=== PATIENT | female | born 1955 | race Caucasian/White ===

== ENCOUNTER 2017-05-07 22:01 | Emergency (ER) | payer SELFPAY ==
[2017-05-07] MEDS ORDERED: Lidocaine/EPINEPHrine/Tetracaine Soln 5 ML Each TOP ONE (22:56)
[2017-05-07] MEDS ORDERED: Lidocaine 1% with EPINEPHrine 1:100,000 50 ML MDV SUBCUT STA (22:57)
--- NOTE | 2017-05-07 22:59 | EDM.PDOC ---
ED HPI GENERAL MEDICAL PROBLEM - General Chief Complaint: Laceration Stated Complaint: CUT HEAD Time Seen by Provider: 05/07/17 22:42 Source of Information: Reports: Patient, Family, RN Notes Reviewed History Limitations: Reports: No Limitations - History of Present Illness INITIAL COMMENTS - FREE TEXT/NARRATIVE: 61-year-old female presents emergency department today with complaint of laceration above her right eye she was going down the steps miss the last 1 and accidentally bumped her forehead into the door jam producing a laceration she has no other complaints laceration Pain Score (Numeric/FACES): 2 - Related Data Allergies Allergy/AdvReac Type Severity Reaction Status Date / Time No Known Allergies Allergy Verified 05/07/17 22:34 Home Meds: Home Meds NK [No Known Home Meds] 05/07/17 [History] Past Medical History HEENT History: Reports: Impaired Vision 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: - Past Surgical History HEENT Surgical History: Reports: Other (See Below) Other HEENT Surgeries/Procedures: ear surgery Female Surgical History: Reports: Tubal Ligation Social & Family History - Tobacco Use Smoking Status *Q: Never Smoker - Caffeine Use Caffeine Use: Reports: Coffee - Alcohol Use Days Per Week of Alcohol Use: 5 Number of Drinks Per Day: 1 Total Drinks Per Week: 5 - Recreational Drug Use Recreational Drug Use: No ED ROS GENERAL - Review of Systems Review Of Systems: See Below Constitutional: Reports: No Symptoms Skin: Reports: Wound ED EXAM, SKIN/RASH Exam: See Below Exam Limited By: No Limitations General Appearance: Alert, WD/WN, No Apparent Distress Eye Exam: Bilateral Eye: EOMI, PERRL Ears: Normal External Exam, Normal Canal, Hearing Grossly Normal, Normal TMs Nose: Normal Inspection, Normal Mucosa, No Blood Front/Back Body Diagram: 1 - 2 cm laceration completely through the dermis ED SKIN PROCEDURES - Laceration/Wound Repair Face Lac/Wound length In cm: 3 Appearance: Subcutaneous, Linear, Clean Distal NVT: Neuro & Vascular Intact, No Tendon Injury Anesthetic Type: Local Local Anesthesia - Lidocaine (Xylocaine): 1% with EPI Local Anesthetic Volume: 1cc Skin Prep: Chlorhexidine (Hibiciens) Saline Irrigation (cc's): 30 Exploration/Debridement/Repair: Wound Explored, In a Bloodless Field, Explored to Base Closed with: Sutures Suture Size: other (6-0) # of Sutures: 7 Suture Type: Nylon Suture Size: other (5-0) # of Sutures: 3 Repaired with: Vicryl Tetanus Status Addressed: Yes (2012) Complications: No Course - Vital Signs Last Recorded V/S: Last Vital Signs Temp 97.3 F 05/07/17 22:40 Pulse 75 05/07/17 22:40 Resp 20 05/07/17 22:40 BP 133/52 L 05/07/17 22:40 Pulse Ox 95 05/07/17 22:40 - Orders/Labs/Meds Orders: Active Orders 24 hr Category Date Time Status Bacitracin [Bacitracin Oint 1 GM] Med 05/07/17 23:41 Once 1 dose TOP ONETIME ONE Meds: Medications Discontinued Medications Generic Name Dose Route Start Last Admin Trade Name Chelsey PRN Reason Stop Dose Admin Lidocaine/Epinephrine 20 ml 05/07/17 22:57 05/07/17 23:00 Xylocaine 1% With Epinephrine 1:100,000 SUBCUT 05/07/17 22:58 20 ml NOW STA Administration Lidocaine/Tetracaine 5 ml 05/07/17 22:56 05/07/17 23:00 Let Soln TOP 05/07/17 22:57 5 ml ONETIME ONE Administration Departure - Departure Time of Disposition: 23:43 Disposition: Home, Self-Care 01 Condition: Good Clinical Impression: Eyebrow laceration Qualifiers: Encounter type: initial encounter Laterality: right Qualified Code(s): S01.111A - Laceration without foreign body of right eyelid and periocular area, initial encounter - Discharge Information Referrals: Virginia Elise PA [Primary Care Provider] - Forms: ED Department Discharge Additional Instructions: Follow wound care instruction sheet, suture removal in 3-4 days follow-up in the emergency department or with your primary care - My Orders Last 24 Hours: My Active Orders 05/07/17 23:41 Bacitracin [Bacitracin Oint 1 GM] 1 dose TOP ONETIME ONE - Assessment/Plan Last 24 Hours: My Active Orders 05/07/17 23:41 Bacitracin [Bacitracin Oint 1 GM] 1 dose TOP ONETIME ONE Plan: Assessment Acuity = acute Site and laterality = 3 cm laceration liter through the dermis into the subcutaneous tissue Etiology = secondary trauma Manifestations = none Location of injury = Home Lab values = none Plan Follow wound care instruction sheet, suture removal in 3-4 days This note was dictated using [employer] voice recognition software please call with any questions on syntax or [email or web address].
[2017-05-07] MEDS ORDERED: Bacitracin Oint 1 GM U/D Packet TOP ONE (23:41)
[2017-05-07] MEDS ORDERED: Bacitracin Oint 1 GM U/D Packet ONE (23:43)
== END 2017-05-07 23:55 | disposition home or self-care (01) ==
LOC: JP.ED 22:01
DX: S01.111A Laceration without foreign body of right eyelid and periocular area, initial encounter (principal); W22.8XXA Striking against or struck by other objects, initial encounter
CPT/HCPCS: 12013; 99283; A9270